=== PATIENT | female | born 1955 | race Asian ===

== ENCOUNTER 2024-03-09 14:46 | Emergency (ER) | payer OTHER ==
[~2024-03-09] VITALS: Ht 154.9 cm; Wt 50.8 kg
[2024-03-09 14:50] VITALS: BP_SYST 149; PULSE 64; RESP 18; TEMP 98.2; O2SAT 100
[2024-03-09] MEDS ORDERED: IBUP-1969 PO (16:11)
[2024-03-09] MEDS ORDERED: BENZ5.1G TP (16:11)
== END 2024-03-09 16:27 | disposition home or self-care (01) ==
LOC: SED 14:46
DX: K12.0 Recurrent oral aphthae (principal); K12.30 Oral mucositis (ulcerative), unspecified; Z79.899 Other long term (current) drug therapy
CPT/HCPCS: 99282